=== PATIENT | female | born 1965 | race Caucasian/White ===

== ENCOUNTER 2020-09-14 22:22 | Emergency (ER) | payer BC, OTHER ==
[2020-09-14 22:29] VITALS: BP 143/96; PULSE 110
[2020-09-14] MEDS ORDERED: Acetaminophen/HYDROcodone 325-5 MG Tab PO ONE (23:29)
--- NOTE | 2020-09-15 00:37 | EDM.PDOC ---
ED HPI GENERAL MEDICAL PROBLEM - General Chief Complaint: Lower Extremity Injury/Pain Stated Complaint: BY AMBULANCE Time Seen by Provider: 09/14/20 22:40 Source of Information: Reports: Patient, Family ( and daughter), RN History Limitations: Reports: No Limitations - History of Present Illness INITIAL COMMENTS - FREE TEXT/NARRATIVE: Marielle is a 55 y/o female who presents to the ED via [facility] for due to inability to ambulate in her home. The patient reports she underwent a left knee replacement at [facility] in [place] yesterday. The procedure was to be same day, however she fell during her post-op period and required revision this morning. The patient was discharged from the facility by her surgeon, however nurses within the surgical center stated she should attempt to get into swing bed due to her lack of mobility with the knee immobilizer. The patient states she has attempted to get around in her home for the past hour and is unable to get comfortable; she presents here "...for admission to swing bed." She denies fever, shaking chills, palpitations, nausea, vomiting, or diarrhea. The patient is due to follow up with her surgeon next week. Left Knee Pain Score (Numeric/FACES): 2 - Related Data Allergies Allergy/AdvReac Type Severity Reaction Status Date / Time aspirin Allergy Other Verified 09/14/20 22:29 Home Meds: Home Meds Folic Acid 1 mg PO DAILY 03/01/16 [History] Meclizine [Antivert] 25 mg PO DAILY 03/01/16 [History] Metoprolol Succinate [Toprol XL] 50 mg PO DAILY 03/01/16 [History] metFORMIN HCl [Metformin HCl] 1,000 mg PO BID 03/01/16 [History] Sennosides [Senna] 2 tab PO TID 03/15/16 [History] Chlorthalidone 25 mg PO DAILY 09/14/20 [History] Hydrocodone/Acetaminophen [Hydrocodone-Acetamin 5-325 mg] 1 each PO Q4HR PRN 09/14/20 [History] Meloxicam 15 mg PO DAILY 09/14/20 [History] oxyCODONE HCl/Acetaminophen [Oxycodone-Acetaminophen 5-325] 1 each PO Q4HR PRN 09/14/20 [History] Past Medical History Cardiovascular History: Reports: Hypertension, Other (See Below) Other Cardiovascular History: tachycardia Respiratory History: Reports: Bronchitis, Recurrent Gastrointestinal History: Reports: Chronic Constipation CLEANING VALIDATION CONSULTANT History: Reports: Dysfunctional Uterine Bleeding Other CLEANING VALIDATION CONSULTANT History: difficult painful periods Musculoskeletal History: Reports: Arthritis Endocrine/Metabolic History: Reports: Diabetes, Type II, Obesity/BMI 30+ Hematologic History: Reports: Anemia - Past Surgical History Cardiovascular Surgical History: Reports: None Respiratory Surgical History: Reports: None GI Surgical History: Reports: Hernia, Abdominal Female Surgical History: Reports: Hysterectomy Endocrine Surgical History: Reports: None Musculoskeletal Surgical History: Reports: Arthroscopic Knee, Knee Replacement Other Musculoskeletal Surgeries/Procedures:: Rt knee surgery Dermatological Surgical History: Reports: None Social & Family History - Family History Cardiac: Reports: CAD Musculoskeletal: Reports: Arthritis Endocrine/Metabolic: Reports: Diabetes, type II Dermatologic: Reports: Eczema Oncologic: Reports: Breast, Leukemia - Tobacco Use Tobacco Use Status *Q: Never Tobacco User Second Hand Smoke Exposure: No - Caffeine Use Caffeine Use: Reports: Coffee - Recreational Drug Use Recreational Drug Use: No - Living Situation & Occupation Living situation: Reports: , with Spouse Occupation: Employed Review of Systems - Review of Systems Review Of Systems: Comprehensive ROS is negative, except as noted in HPI. ED EXAM, GENERAL - Physical Exam Exam: See Below Exam Limited By: No Limitations General Appearance: Alert, No Apparent Distress, Obese Eye Exam: Bilateral Eye: EOMI, Normal Inspection, PERRL (3mm) Ears: Normal External Exam, Hearing Grossly Normal Nose: Normal Inspection, Normal Mucosa, No Blood Throat/Mouth: Normal Inspection, Normal Oropharynx, Normal Voice, No Airway Compromise Head: Atraumatic, Normocephalic Neck: Normal Inspection, Supple, Non-Tender, Full Range of Motion Respiratory/Chest: No Respiratory Distress, Lungs Clear, Normal Breath Sounds, No Accessory Muscle Use, Chest Non-Tender Cardiovascular: Normal Peripheral Pulses, Regular Rate, Rhythm, No Edema, No Gallop, No JVD, No Murmur, No Rub Peripheral Pulses: 1+: Posterior Tibial (L), Posterior Tibial (R), 2+: Radial (L), Radial (R), Dorsalis Pedis (L), Dorsalis Pedis (R) GI/Abdominal: Normal Bowel Sounds, Soft, Non-Tender, No Abnormal Bruit, No Mass, Pelvis Stable (Female) Exam: Deferred Rectal (Female) Exam: Deferred Back Exam: Normal Inspection, Full Range of Motion Extremities: No Pedal Edema, Normal Capillary Refill, Joint Swelling (To right knee), Leg Pain (left knee pain; Immoblizer in place), Limited Range of Motion Neurological: Alert, Oriented, CN II-XII Intact, Normal Cognition, No Motor/Sensory Deficits, Abnormal Gait (Patient states she is unable to ambulate with immobilizer) Psychiatric: Normal Affect, Normal Mood Skin Exam: Warm, Dry, Intact, Normal Color, No Rash. No: Cyanosis, Erythema, Mottled, Pallor Course - Vital Signs Last Recorded V/S: Last Vital Signs Temp 99.2 F 09/14/20 22:22 Pulse 110 H 09/14/20 22:22 Resp 18 09/14/20 22:22 BP 143/96 H 09/14/20 22:22 Pulse Ox 96 09/14/20 22:22 - Orders/Labs/Meds Meds: Medications Discontinued Medications Generic Name Dose Route Start Last Admin Trade Name Freq PRN Reason Stop Dose Admin Hydrocodone Bitart/Acetaminophen 1 tab 09/14/20 23:29 09/15/20 00:02 Acetaminophen/Hydrocodone 325-5 Mg Tab PO 09/14/20 23:30 1 tab ONETIME ONE Administration - Re-Assessments/Exams Free Text/Narrative Re-Assessment/Exam: 09/14/20 Hydrocodone/APAP administered for pain. Discussed requirements for swing bed as well as for admission to observation. Patient, , and daughter upset as they were told by the previous medical facility they could just show up to the ED. Reviewed usual need to attempt care at home prior. Case discussed with Dr. Lupe lopez who confirmed the patient does not meet criteria for observation. Discussed supportive cares for post-op knee pain and altered mobility at home. Certified Registered Locksmith encouraged patient to follow up with her surgeon regarding current plan of care. Red flag signs and symptoms which would warrant reevaluation reviewed. Patient verbalized understanding and agreement with the plan of care. Patient and family requesting EMS transport back home. Certified Registered Locksmith called [facility] in front of the family, Ramon from [facility] states transport from ER to home is not permitted under their protocol/procedures. Certified Registered Locksmith offered [employer] assistance which the family refused. Departure - Departure Time of Disposition: 00:33 Disposition: Home, Self-Care 01 Condition: Good Clinical Impression: History of left knee replacement - Discharge Information *PRESCRIPTION DRUG MONITORING PROGRAM REVIEWED*: Not Applicable *COPY OF PRESCRIPTION DRUG MONITORING REPORT IN PATIENT ADILENE: Not Applicable Referrals: PCP,None [Primary Care Provider] - Forms: ED Department Discharge Additional Instructions: 1.) Follow up with surgeon, as previously scheduled. 2.) Follow discharge instructions, per surgeon. Sepsis Event Note (ED) - Evaluation Sepsis Screening Result: No Definite Risk
== END 2020-09-15 00:39 | disposition home or self-care (01) ==
LOC: DL.ED 22:22
DX: M25.562 Pain in left knee (principal); I10 Essential (primary) hypertension; E11.9 Type 2 diabetes mellitus without complications; E66.9 Obesity, unspecified; Z96.652 Presence of left artificial knee joint; Z88.8 Allergy status to other drugs, medicaments and biological substances; Z68.43 Body mass index [BMI] 50.0-59.9, adult; Z79.84 Long term (current) use of oral hypoglycemic drugs
CPT/HCPCS: 99284; A9270-GY

== ENCOUNTER 2023-12-23 06:31 | Day surgery (SDC) | payer BC, OTHER ==
[~2023-12-23 06:31] MED LIST: Acetaminophen 325 MG Tab PO PRN; Acetaminophen/Codeine 300-30 MG Tab PO PRN; Ondansetron 4 MG/2 ML SDV IVPUSH PRN; Proparacaine 0.5% Ophth Soln 15 ML Bottle ONE
[2023-12-23] MEDS: Proparacaine 0.5% Ophth Soln 15 ML Bottle EYELF ONE ×2 (07:01→07:49)
[2023-12-23] MEDS: Moxifloxacin 0.5% Ophth Soln 3 ML Bottle EYELF ONE (07:02)
[2023-12-23] MEDS: Povidone-Iodine 5% Sterile Ophth Soln 30 ML Bottle EYELF ONE ×2 (07:04→07:51)
[2023-12-23] MEDS: Tropicamide 1% Ophth Soln 15 ML Bottle EYELF ONE (07:07)
[2023-12-23] MEDS: Phenylephrine 10% Ophth Soln 5 ML Bot EYELF ONE (07:08)
[2023-12-23] MEDS: Timolol Maleate 0.5% Ophth Soln 5 ML Bottle EYELF ONE (07:09)
[2023-12-23] MEDS: Sodium Chloride 0.9% 10 ML Syringe FLUSH PRN (07:11)
[2023-12-23] MEDS: Cataract Ophth Solution EYELF ONE (07:13)
[2023-12-23] MEDS: Lidocaine 1% with EPINEPHrine 1:100,000 20 ML MDV ONE (07:58)
[2023-12-23] MEDS: Vancomycin 500 MG SDV EYELF ONE (07:59)
[2023-12-23] MEDS: Apraclonidine 0.5% Ophth Soln 5 ML Bot EYELF ONE (08:02)
[2023-12-23] MEDS: Dexamethasone/Neomycin/Polymyxin B Ophth Oint 3.5 GM Tube EYELF ONE (08:04)
[2023-12-23] MEDS: Diclofenac Sodium 0.1% Ophth Soln 5 ML Bottle EYELF ONE (08:04)
[2023-12-23 10:08] VITALS: BP 123/55; PULSE 66
== END 2023-12-23 08:37 | disposition home or self-care (01) ==
LOC: DL.SDS 06:31
PROVIDERS: ATTEND Ophthalmology
DX: H25.812 Combined forms of age-related cataract, left eye (principal); E66.01 Morbid (severe) obesity due to excess calories; G47.33 Obstructive sleep apnea (adult) (pediatric); E11.36 Type 2 diabetes mellitus with diabetic cataract; D50.9 Iron deficiency anemia, unspecified; E87.6 Hypokalemia; Z79.84 Long term (current) use of oral hypoglycemic drugs; Z79.899 Other long term (current) drug therapy; Z79.82 Long term (current) use of aspirin; Z88.8 Allergy status to other drugs, medicaments and biological substances; Z91.09 Other allergy status, other than to drugs and biological substances; Z68.42 Body mass index [BMI] 45.0-49.9, adult
CPT/HCPCS: 00142; A9270-GY; J3370; J3490

== ENCOUNTER 2024-01-06 06:25 | Day surgery (SDC) | payer BC ==
[2024-01-06] MEDS: Povidone-Iodine 5% Sterile Ophth Soln 30 ML Bottle EYERT ONE ×3 (06:19→07:43)
[2024-01-06] MEDS: Proparacaine 0.5% Ophth Soln 15 ML Bottle EYERT ONE ×3 (06:19→07:41)
[2024-01-06] MEDS: Lidocaine 1% 30 ML SDV ONE ×2 (06:20→07:54)
[2024-01-06] MEDS: Vancomycin 500 MG SDV EYERT ONE ×2 (06:21→07:54)
[2024-01-06] MEDS: Apraclonidine 0.5% Ophth Soln 5 ML Bot EYERT ONE ×2 (06:22→08:00)
[2024-01-06] MEDS: Diclofenac Sodium 0.1% Ophth Soln 5 ML Bottle EYERT ONE ×2 (06:22→08:00)
[2024-01-06] MEDS: Dexamethasone/Neomycin/Polymyxin B Ophth Oint 3.5 GM Tube EYERT ONE ×2 (06:23→08:00)
[~2024-01-06 06:25] MED LIST changes: -Acetaminophen 325 MG Tab PO PRN; -Acetaminophen/Codeine 300-30 MG Tab PO PRN; -Ondansetron 4 MG/2 ML SDV IVPUSH PRN
[2024-01-06] MEDS ORDERED: Acetaminophen 325 MG Tab PO PRN (06:30)
[2024-01-06] MEDS ORDERED: Ondansetron 4 MG/2 ML SDV IVPUSH PRN (06:30)
[2024-01-06] MEDS ORDERED: Acetaminophen/Codeine 300-30 MG Tab PO PRN (06:30)
[2024-01-06] MEDS: Sodium Chloride 0.9% 10 ML Syringe FLUSH PRN (07:22)
[2024-01-06] MEDS: Moxifloxacin 0.5% Ophth Soln 3 ML Bottle EYERT ONE (07:24)
[2024-01-06] MEDS: Tropicamide 1% Ophth Soln 15 ML Bottle EYERT ONE (07:26)
[2024-01-06] MEDS: Phenylephrine 10% Ophth Soln 5 ML Bot EYERT ONE (07:27)
[2024-01-06] MEDS: Timolol Maleate 0.5% Ophth Soln 5 ML Bottle EYERT ONE (07:27)
[2024-01-06] MEDS: Cataract Ophth Solution EYERT ONE (07:28)
[2024-01-06 08:33] VITALS: BP 126/86; PULSE 76
== END 2024-01-06 08:38 | disposition home or self-care (01) ==
LOC: DL.SDS 06:25
PROVIDERS: ATTEND Ophthalmology
DX: E11.36 Type 2 diabetes mellitus with diabetic cataract (principal); H25.811 Combined forms of age-related cataract, right eye; I10 Essential (primary) hypertension; E78.5 Hyperlipidemia, unspecified; E66.01 Morbid (severe) obesity due to excess calories; Z68.42 Body mass index [BMI] 45.0-49.9, adult; G47.33 Obstructive sleep apnea (adult) (pediatric); Z79.82 Long term (current) use of aspirin; Z79.84 Long term (current) use of oral hypoglycemic drugs; Z79.899 Other long term (current) drug therapy; Z88.6 Allergy status to analgesic agent
CPT/HCPCS: A9270-GY; J3370; J3490; V2788-GY